=== PATIENT | male | born 1990 | race Caucasian/White ===

== ENCOUNTER 2023-02-08 07:18 | Inpatient (IN) | payer MEDICAID ==
[~2023-02-08] VITALS: Ht 188 cm; Wt 105.2 kg
[2023-02-08 07:34] VITALS: BP 128/76; PULSE 91; RESP 20; TEMP 98.5; O2SAT 97
[2023-02-08] MEDS ORDERED: NACL 0.9% 1,000 ML IV ONE ×2 (07:55→11:30)
[2023-02-08] MEDS ORDERED: fentaNYL citrate 0.05 MG/ML VIAL IVP ONE ×2 (07:55→09:45)
[2023-02-08 08:34] LABS: BASOPHILS % (AUTO) 0.3 % (0.0-2.0); EOSINOPHILS % (AUTO) 0.1 % (0.0-4.0); HEMATOCRIT 41.5 % (36-52); HEMOGLOBIN 14.1 g/dL (12.0-18.0); LYMPHOCYTES # (AUTO) 0.9 K/uL (2.0-11.5); MEAN CORPUSCULAR HEMOGLOBIN 32 pg (27-31); MEAN CORPUSCULAR HGB CONC 34 g/dL (33-37); MEAN CORPUSCULAR VOLUME 92.9 fL (80-94); MONOCYTES % (AUTO) 6.7 % (1.7-9.3); NEUTROPHILS # (AUTO) 13.4 K/uL (1.8-7.7); PLATELET COUNT (AUTO) 239 K/uL (140-450); RED BLOOD CELL COUNT(AUTO) 4.47 MIL/uL (4.20-6.10); RED CELL DISTRIBUTION WIDTH 13.4 % (11.6-13.7); WHITE BLOOD COUNT (AUTO) 15.4 K/uL (4.8-10.8)
[2023-02-08 08:48] LABS: LYMPHOCYTES % (AUTO) 6.1 % (20.5-51.1); NEUTROPHILS % (AUTO) 86.8 % (42.2-75.2)
[2023-02-08 09:17] LABS: ALANINE AMINOTRANSFERASE 82 U/L (12-78); ALBUMIN 3.6 g/dL (3.4-5.0); ALCOHOL, BLOOD 139 mg/dL (<10); ALKALINE PHOSPHATASE 86 U/L (50-136); ANION GAP 13.6 (8-16); ASPARTATE AMINOTRANSFERASE 59 U/L (15-37); CALCIUM 8.1 mg/dL (8.5-10.1); CARBON DIOXIDE 23.6 mmol/L (21-32); CHLORIDE 109 mmol/L (98-107); CREATININE 0.9 mg/dL (0.6-1.3); GFR ARICAN-AMERICAN 127 mL/min (>90); GFR NON ARICAN-AMERICAN 105 mL/min (>90); GLUCOSE 112 mg/dL (74-106); POTASSIUM 3.2 mmol/L (3.5-5.1); SODIUM SERUM 143 mmol/L (136-145); TOTAL BILIRUBIN 0.2 mg/dL (0.0-1.0); TOTAL PROTEIN, SERUM 7.2 g/dL (6.4-8.2); UREA NITROGEN, BLOOD 9 mg/dL (7-18)
[2023-02-08 09:36] LABS: AMPHETAMINE, URINE NEGATIVE ng/ml (NEG <=1000); BARBITURATE, URINE NEGATIVE ng/ml (NEG <=200); BENZODIAZEPINE, URINE NEGATIVE ng/mL (NEG <=200); CANNABINOID, URINE POSITIVE ng/mL (NEG <=50); COCAINE, URINE POSITIVE ng/mL (NEG <=300); OPIATE, URINE NEGATIVE ng/mL (NEG <=2000); PHENCYCLIDINE SCREEN,URINE NEGATIVE ng/mL (NEG <=25)
[2023-02-08] MEDS ORDERED: POTASSIUM CHLORIDE 10 MEQ TABER PO ONE (10:45)
[2023-02-08] MEDS: NACL 0.9% 1,000 ML IV SCH ×2 (11:07→20:33)
[2023-02-08] MEDS ORDERED: ASPIRIN 81 MG TAB.CHEW PO ONE (11:10)
[2023-02-08] MEDS ORDERED: HEPARIN PER PHARMACY MC PRN ×2 (11:30→12:50)
[2023-02-08] MEDS ORDERED: ONDANSETRON 4 MG/2 ML VIAL IVP PRN (12:05)
[2023-02-08] MEDS ORDERED: LORazepam 2 MG/ML VIAL IVP PRN (12:05)
[2023-02-08] MEDS ORDERED: ACETAMINOPHEN 325 MG TAB PO PRN (12:05)
[2023-02-08 12:12] LABS: INR 0.9 (0.8-1.2); PARTIAL THROMBOPLASTIN TIME 24.1 secs (22-35.6); PROTHROMBIN TIME 9.4 secs (10.8-13.4)
[2023-02-08] MEDS: hePARIN / DEXT 5% PREMIX 250 ML IV SCH ×2 (15:27→22:16)
[2023-02-08 15:55] VITALS: PULSE 83
[2023-02-08 16:00] VITALS: PULSE 86
[2023-02-08 17:29] VITALS: PULSE 68; RESP 20; O2SAT 99
[2023-02-08 17:54] VITALS: PULSE 68; RESP 20; O2SAT 99
[2023-02-08] MEDS: MORPHINE SULFATE 2 MG/ML SYR IVP PRN ×2 (19:00→23:26)
[2023-02-08 20:00] VITALS: BP 114/77; PULSE 84; PULSE 94; RESP 20; TEMP 98.5; O2SAT 97
[2023-02-08] MEDS: HYDROcodone/APAP 5/325 MG 1 TAB TAB PO PRN (20:32)
[2023-02-09] VITALS (8 sets, daily range): BP systolic 116–137; BP diastolic 68–95; PULSE 62–86; RESP 17–19; TEMP 97.2–98.6; O2SAT 94–100
[2023-02-09] MEDS: HYDROcodone/APAP 5/325 MG 1 TAB TAB PO PRN ×3 (01:44→21:28)
[2023-02-09 04:09] LABS: BASOPHILS % (AUTO) 0.4 % (0.0-2.0); EOSINOPHILS # (AUTO) 0.1 K/uL (0-0.4); EOSINOPHILS % (AUTO) 1.3 % (0.0-4.0); HEMATOCRIT 41.1 % (36-52); LYMPHOCYTES # (AUTO) 1.3 K/uL (2.0-11.5); LYMPHOCYTES % (AUTO) 13.3 % (20.5-51.1); MEAN CORPUSCULAR HEMOGLOBIN 31 pg (27-31); MEAN CORPUSCULAR HGB CONC 34 g/dL (33-37); MEAN CORPUSCULAR VOLUME 92.4 fL (80-94); PLATELET COUNT (AUTO) 224 K/uL (140-450); RED BLOOD CELL COUNT(AUTO) 4.45 MIL/uL (4.20-6.10); RED CELL DISTRIBUTION WIDTH 13.3 % (11.6-13.7); WHITE BLOOD COUNT (AUTO) 9.5 K/uL (4.8-10.8)
[2023-02-09] MEDS: hePARIN / DEXT 5% PREMIX 250 ML IV SCH ×3 (04:48→12:54)
[2023-02-09 04:55] LABS: ALBUMIN 3.4 g/dL (3.4-5.0); ANION GAP 10.8 (8-16); CALCIUM 8.8 mg/dL (8.5-10.1); CARBON DIOXIDE 28.3 mmol/L (21-32); CREATININE 0.9 mg/dL (0.6-1.3); MAGNESIUM 1.8 mg/dL (1.8-2.4); PHOSPHORUS 2.4 mg/dL (2.5-4.9); POTASSIUM 4.1 mmol/L (3.5-5.1); TOTAL BILIRUBIN 0.9 mg/dL (0.0-1.0)
[2023-02-09] MEDS: NACL 0.9% 1,000 ML IV SCH (09:48)
[2023-02-09] MEDS: MORPHINE SULFATE 2 MG/ML SYR IVP PRN (09:50)
[2023-02-09] MEDS ORDERED: ATORVASTATIN 20 MG TAB PO SCH (21:00)
[2023-02-10 00:51] VITALS: BP 118/72; PULSE 74; RESP 19; TEMP 97.5; O2SAT 98
[2023-02-10 04:00] VITALS: BP 128/85; PULSE 59; PULSE 70; PULSE 74; RESP 18; TEMP 98.3; O2SAT 99
[2023-02-10 07:14] LABS: CHOL/HDL RATIO 4.2 (1-4.5)
[2023-02-10 08:00] VITALS: BP 118/73; PULSE 57; PULSE 64; PULSE 66; RESP 18; TEMP 97.7; O2SAT 97; O2SAT 98
[2023-02-10] MEDS ORDERED: ECOTRIN 81 MG TABEC PO SCH (09:00)
[2023-02-10] MEDS ORDERED: ASPI-1856 PO (11:04)
[2023-02-10] MEDS ORDERED: ATOR40TA PO (11:05)
[2023-02-10 12:00] VITALS: BP 122/81; PULSE 66; PULSE 69; RESP 18; TEMP 97.3; O2SAT 98
== END 2023-02-10 13:49 | disposition home or self-care (01) | DRG 198 ==
LOC: MED 07:18 → MTU 12:07
PROVIDERS: ADMIT Student in an Organized Health Care Education/Training Program; ATTEND Student in an Organized Health Care Education/Training Program
DX: I24.89 Other forms of acute ischemic heart disease (principal); D72.829 Elevated white blood cell count, unspecified; I24.9 Acute ischemic heart disease, unspecified; F14.10 Cocaine abuse, uncomplicated; E78.5 Hyperlipidemia, unspecified
CPT/HCPCS: 36415; 70450; 71275; 72125; 73610; 80053; 80305; 83735; 84100; 84484; 85025; 85610; 85730; 87081; 93005; 96361; 96374; 96375; 96376; 99291; G0482; J1644; J2060; J2270; J2405; J3010; Q9967